=== PATIENT | male | born 1965 | race Caucasian/White ===

== ENCOUNTER 2023-02-22 12:46 | Emergency (ER) | payer OTHER, SELFPAY ==
[2023-02-22] VITALS (24 sets, daily range): BP systolic 151–175; BP diastolic 111–133; PULSE 67–78; RESP 12–22; TEMP 36.4; O2SAT 96–100
--- NOTE | ~2023-02-22 | XR_ITS ---
EXAMINATION: XR chest 2V 02/22/2023 13:42 INDICATION: Chest pain and lightheadedness PROCEDURE: 2 view chest COMPARISON: Comparison to multiple prior studies sequentially, with oldest reviewed study dated 09/11. FINDINGS: The lungs are clear. The cardiomediastinal silhouette is within normal limits. There are no pleural effusions. There is no pneumothorax suspected. IMPRESSION: 1: NO ACUTE CARDIOPULMONARY DISEASE. Reviewed, dictated and finalized at location A.
--- NOTE | 2023-02-22 13:08 | ECG_ITS ---
Measurements Intervals [place] Rate: 69 P: 45 [place]: 179 QRS: 16 QRSD: 96 T: 40 QT: 384 QTc: 413 Interpretive Statements SINUS RHYTHM WITHIN NORMAL LIMITS NO PREVIOUS ECG AVAILABLE FOR COMPARISON Electronically Signed On 02-23-2023 14:46:03 CDT by Kenneth Menezes M.D.
[2023-02-22 13:25] LABS: Basophils Absolute Auto 0.1 K/mm3 (0.0-0.1); Basophils Percent Auto 1.2 % (0.2-1.2); Eosinophils Absolute Auto 0.2 K/mm3 (0-0.3); Eosinophils Percent Auto 3.2 % (0-4.4); Hematocrit 38.1 % (42.0-52.0); Hemoglobin 12.7 g/dL (14.0-18.0); Immature Granulocyte Absolute 0.03 K/mm3 (0.00-0.031); Immature Granulocyte Percent A 0.5 % (0-0.5); Lymphocytes Absolute Auto 1.87 K/mm3 (0.9-3.2); Lymphocytes Percent Auto 33.1 % (18.3-44.2); Mean Corpuscular HGB Conc 33.3 g/dl (32-36); Mean Corpuscular Hemoglobin 30.7 pg (26-34); Mean Platelet Volume 9.4 fl (7.4-10.4); Monocytes Absolute Auto 0.6 K/mm3 (0.1-0.6); Neutrophils Absolute Auto 2.9 K/mm3 (1.3-6.7); Platelet Count Result 209 k/mm3 (150-375); Red Blood Count 4.14 M/mm3 (4.6-6.20); Red Cell Distribution Width 12.5 % (11.5-14.5); White Blood Count 5.7 K/mm3 (4.5-10.0)
[2023-02-22 13:35] LABS: Alanine Aminotransferase 16 U/L (6-50); Albumin Level 4.1 g/dL (3.5-5.1); Alkaline Phosphatase 68 U/L (38-126); Anion Gap 8 mmol/L (8-16); Aspartate Amino Transferase 31 U/L (17-59); Bilirubin,Total 0.6 mg/dL (0.2-1.3); Blood Urea Nitrogen 16 mg/dL (9-20); Calcium 9.1 mg/dL (8.4-10.2); Carbon Dioxide 23 mmol/L (22-30); Chloride 107 mmol/L (98-107); Estimated CRCL calculation 85 ml/min; Estimated Glomerular Filt Rate > 60; Glucose 94 mg/dL (65-110); Sodium 138 mmol/L (137-145)
[2023-02-22 13:37] LABS: INR 0.9; Prothrombin Time 12.9 Seconds (11.1-14.7)
[2023-02-22 13:38] LABS: Partial Thromboplastin Time 27.5 SECONDS (22.3-36.8)
[2023-02-22 13:47] LABS: Troponin I < 0.012 ng/mL (0.000-0.034)
--- NOTE | 2023-02-22 14:29 | ED.GENADULT ---
HPI - General Adult General Chief complaint: Chest Pain Stated complaint: feels faint Time Seen by Provider: 02/22/23 12:52 History of Present Illness HPI narrative: Patient is a 57-year-old male who presents ER with near syncope. He is at [employer] when he felt some acid reflux sensation and became lightheaded. He did not lose consciousness but felt like the most did. He was improved from his head down. No persistent chest pain. No racing heart. No history of heart disease. Denies fevers or chills or sweats. Reports eating a normal breakfast today. Related Data Allergies Allergy/AdvReac Type Severity Reaction Status Date / Time rubella virus live vaccine Allergy Mild Unknown Verified 02/22/23 12:59 Gadolinium-Containing Allergy Unknown Unknown Verified 02/22/23 12:59 Contrast Medi FEATHER PILLOWS Allergy Severe Unknown Uncoded 02/22/23 12:59 Contrast Media Allergy Mild ABD PAIN Uncoded 02/22/23 12:59 Review of Systems Review of Systems: All systems reviewed & are unremarkable except as noted in HPI and below Constitutional: Constitutional: Denies chills and Denies fatigue ENT: Denies nasal congestion and Denies sore throat Cardiovascular: Cardiovascular: Denies chest pain, Denies rapid heart rate and Denies radiating jaw, neck or arm pain Respiratory: Respiratory: Denies cough and Denies dyspnea Gastrointestinal: Gastrointestinal: Denies abdominal pain, Reports heartburn, Denies nausea and Denies vomiting Neurologic: Reports syncope (near), Denies headache(s), Denies focal weakness and Denies numbness PMFSH Past Medical History Medical History (Updated 02/22/23 @ 17:26 by Yayo Coffman MD) Healthy adult male Surgical History Surgical History (Updated 02/22/23 @ 17:26 by Yayo Coffman MD) History of cholecystectomy Social History Social History (System 11/30/19 @ 12:51 by Jackie Morrison) Smoking status: Former smoker Smoking end date: 05/04/05 Alcohol intake: never Exam Narrative: GENERAL: Well-appearing, well-nourished, and in no acute distress. HEAD: Normocephalic, atraumatic. ENT: Mucous membranes moist. NECK: Supple. CHEST: Clear to auscultation. No respiratory distress. HEART: Regular rate and rhythm. Normal peripheral pulses. ABDOMEN: Soft, nontender, nondistended. EXTREMITIES: Normal range of motion. No edema. SKIN: Warm, dry, no rash. NEURO: Alert and oriented x3. PSYCH: Normal mood and affect. Course Course Emergency Course: Patient resting comfortably. Informed of results. Troponin negative x3. Normal EKG me. Recommend follow-up with PCP. Discharged Vital Signs Vital signs: Vital Signs Pulse Rate 74 02/22/23 12:52 Respiratory Rate 17 02/22/23 12:52 Blood Pressure 170/111 H 02/22/23 12:52 Pulse Oximetry 99 02/22/23 12:52 Temperature 97.6 F 02/22/23 12:53 Pulse Rate 71 02/22/23 16:01 Respiratory Rate 14 02/22/23 16:01 Blood Pressure 168/117 H 02/22/23 16:01 Pulse Oximetry 99 02/22/23 16:01 Oxygen Delivery Room Air 02/22/23 12:57 Medical Decision Making Vital Signs Vital Signs: Vital Signs Pulse Rate 74 02/22/23 12:52 Respiratory Rate 17 02/22/23 12:52 Blood Pressure 170/111 H 02/22/23 12:52 Pulse Oximetry 99 02/22/23 12:52 Temperature 97.6 F 02/22/23 12:53 Pulse Rate 71 02/22/23 16:01 Respiratory Rate 14 02/22/23 16:01 Blood Pressure 168/117 H 02/22/23 16:01 Pulse Oximetry 99 02/22/23 16:01 Oxygen Delivery Room Air 02/22/23 12:57 Lab Data 02/22/23 13:20 02/22/23 13:20 Labs: Lab Results 02/22/23 02/22/23 Range/Units 13:20 16:04 WBC 5.7 (4.5-10.0) K/mm3 RBC 4.14 L (4.6-6.20) M/mm3 Hgb 12.7 L (14.0-18.0) g/dL Hct 38.1 L (42.0-52.0) % MCV 92.0 (80-100) fl MCH 30.7 (26-34) pg MCHC 33.3 (32-36) g/dl RDW 12.5 (11.5-14.5) % Plt Count 209 (150-375) k/mm3 MPV 9.4 (7.4
[2023-02-22 16:54] LABS: Troponin I < 0.012 ng/mL (0.000-0.034)
== END 2023-02-22 17:21 | disposition home or self-care (01) ==
PROVIDERS: Emergency Provider Emergency Medicine
DX: R55 Syncope and collapse (principal); R07.89 Other chest pain; Z87.891 Personal history of nicotine dependence
CPT/HCPCS: 36415; 71046; 80053; 84484; 85025; 85610; 85730; 93005; 99284

== ENCOUNTER → 2023-11-12 09:27 | Outpatient (CLI) | payer OTHER, SELFPAY ==
--- NOTE | ~2023-11-12 | XR_ITS ---
Left Shoulder Technique: AP and axillary views were obtained. Clinical History: Pain Findings: No fracture or dislocation is seen. Osseous alignment is anatomic. The glenohumeral and acr omioclavicular joint spaces are preserved. Soft tissues are unremarkable. Impression: Unremarkable left shoulder radiographs. Reviewed, dictated and finalized at [facility]. Impression: Unremarkable left shoulder radiographs.
== END ==
PROVIDERS: PCP Family Medicine; Visit Provider Nurse Practitioner Family
DX: M25.512 Pain in left shoulder (principal)
CPT/HCPCS: 73030

== ENCOUNTER 2024-10-17 01:52 | Day surgery (SDC) | payer OTHER, SELFPAY ==
[2024-10-07 09:56] VITALS: BMI 25.1
[2024-10-17 11:56] VITALS: BP 117/86; PULSE 74; RESP 18; TEMP 36.9; O2SAT 96
--- NOTE | 2024-10-17 12:10 | WPDANESEPPF ---
Anes - Initial Pre Proc Eval Procedure: Operation Date: 10/17/24 13:30 Proposed Procedures p Screening Colonoscopy - Theron Giraldo MD Date/Time: 10/17/24 12:10 Surgeon: Theron Giraldo MD Pre Op Diagnosis: screening Patient Data Age: 59 Gender: M Height: 1.83 m Weight: 77.8 kg Last Vital Signs Temp 36.9 C 10/17/24 11:56 Pulse 74 10/17/24 11:56 Resp 18 10/17/24 11:56 BP 117/86 10/17/24 11:56 Pulse Ox 96 10/17/24 11:56 O2 Del Method Room Air 10/17/24 11:56 Allergies Allergy/AdvReac Type Severity Reaction Status Date / Time rubella virus live vaccine Allergy Mild Unknown Verified 10/07/24 09:43 Gadolinium-Containing Allergy Unknown Unknown Verified 10/07/24 09:43 Contrast Medi FEATHER PILLOWS Allergy Severe Unknown Uncoded 10/07/24 09:43 Contrast Media Allergy Mild ABD PAIN Uncoded 10/07/24 09:43 Home Medications ?Medication ?Instructions ?Recorded ?Confirmed ?Type cyclobenzaprine 10 mg tablet 10 mg PO BID PRN muscle spasm #180 04/02/23 10/07/24 Rx tabs sildenafil 100 mg tablet 100 mg PO DAILY PRN sexual 11/12/23 10/07/24 Rx activity #30 tabs lisinopril 20 mg tablet 20 mg PO DAILY #90 tabs 06/20/24 10/17/24 Rx naproxen 500 mg tablet 500 mg PO BID PRN pain #180 tabs 06/20/24 10/07/24 Rx tamsulosin 0.4 mg capsule 0.4 mg PO QHS #90 caps 06/20/24 10/17/24 Rx Patient hx anesthesia problems: none Family hx anesthesia problems: none Results Review: All pre-operative results and documents have been reviewed as part of the pre-operative evaluation. 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, sober 3 years Substance use: never Substance use type: does not use Lack of Transportation: No Lack of Food: Sometimes True Current Housing: I Have Housing Concerned About Future Housing: No Difficulty Paying Gas/Electric Bills: No Difficulty Paying for Meds: No Currently Unemployed: No Education: High School Diploma/GED Difficulty w/ Childcare or Family Care: No Living arrangements: alone Spiritual care concerns: No Anes - Eval Final PreProcedure Day of Procedure 10/17/24 12:10 Patient weight: normal Heart: regular rate and rhythm Lungs: clear to auscultation and normal air movement Airway: Mallampati scale class II Neurological: alert and oriented Last oral intake: >/= 8 hours ASA classification: II Emergent: no Anesthetic plan: proceed Anesthesia type and monitoring: general GIVS and standard monitoring Results Review: All pre-operative results and documents have been reviewed as part of the pre-operative evaluation. Informed Consent: The patient's anesthetic plan and its attendant risks and benefits were discussed with the patient/family/POA. Questions were solicited and answers provided to the satisfaction of the patient/family/POA.
[2024-10-17] MEDS: LACTATED RINGERS 1,000 ML 150 ML IV CONT (12:33)
--- NOTE | 2024-10-17 12:39 | PM.HPGS ---
History of Present Illness History of Present Illness Consent: Risks, benefits, and alternatives have been discussed and questions answered. Patient agrees to proceed with procedure. Chief complaint: screening Narrative: Gabriel Wyman is a 59 year old male here for first screening colonoscopy Review of Systems Review of Systems: All systems reviewed & are unremarkable except as noted in HPI and below PMFSH Past Medical History Medical History (Updated 06/20/24 @ 15:39 by Virginia Prieto NP) Loose stools Erectile dysfunction Elevated fasting glucose Left shoulder pain Myalgia Screening for colon cancer Nocturia Encounter to establish care Hypertension Anemia Healthy adult male Surgical History Surgical History History of cholecystectomy Family History Family History Father Hypertension Social History Social History Years smoked: 15 Smoking status: Former smoker Tobacco type: cigarettes Smoking end date: 05/04/05 Alcohol intake: former Alcohol use details: 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, sober 3 years Substance use: never Substance use type: does not use Lack of Transportation: No Lack of Food: Sometimes True Current Housing: I Have Housing Concerned About Future Housing: No Difficulty Paying Gas/Electric Bills: No Difficulty Paying for Meds: No Currently Unemployed: No Education: High School Diploma/GED Difficulty w/ Childcare or Family Care: No Living arrangements: alone Spiritual care concerns: No Meds Home Medications and Allergies Home Medications ?Medication ?Instructions ?Recorded ?Confirmed ?Type cyclobenzaprine 10 mg tablet 10 mg PO BID PRN muscle spasm #180 04/02/23 10/07/24 Rx tabs sildenafil 100 mg tablet 100 mg PO DAILY PRN sexual 11/12/23 10/07/24 Rx activity #30 tabs lisinopril 20 mg tablet 20 mg PO DAILY #90 tabs 06/20/24 10/17/24 Rx naproxen 500 mg tablet 500 mg PO BID PRN pain #180 tabs 06/20/24 10/07/24 Rx tamsulosin 0.4 mg capsule 0.4 mg PO QHS #90 caps 06/20/24 10/17/24 Rx Allergies Allergy/AdvReac Type Severity Reaction Status Date / Time rubella virus live vaccine Allergy Mild Unknown Verified 10/07/24 09:43 Gadolinium-Containing Allergy Unknown Unknown Verified 10/07/24 09:43 Contrast Medi FEATHER PILLOWS Allergy Severe Unknown Uncoded 10/07/24 09:43 Contrast Media Allergy Mild ABD PAIN Uncoded 10/07/24 09:43 Vital Signs Vital Signs - 24 hr 10/17/24 11:56 Temperature 98.4 F Pulse Rate 74 Respiratory Rate 18 Blood Pressure 117/86 Pulse Oximetry 96 Oxygen Delivery Room Air Exam Const: General: comfortable and no acute distress HENMT: Face/Nose/Sinus: Normal nares present Eyes: General: appearance normal, both eyes and all related structures Neck: Neck: no JVD Resp: Auscultation: clear to auscultation bilaterally Cardio: Rate: regular rate Rhythm: regular rhythm GI: Inspection: non-distended GI Palp: Yes Soft to palpation Skin: General skin exam: normal color Neuro: Speech: normal speech Extrem: General: normal to inspection Psych: Mental Status: mental status grossly normal Assessment and Plan Assessment and plan (1) Screening for colon cancer: Code(s): Z12.11 - Encounter for screening for malignant neoplasm of colon Status: Acute Assessment and Plan: colonoscopy
--- NOTE | 2024-10-17 12:53 | S_PTH ---
PATIENT: Gabriel Wyman LOC: [facility]#:[id number] AGE/SX: 59/M ROOM: RE10/17/[address]: Theron Giraldo MD : 1965 BED: DIS: 10/17/2024 SPEC #: [id number] RECD: 10/17/24 13:06 STATUS: JL HONG #: [id number] MARIA LUISA: 10/17/24 12:[address]: Theron Giraldo DEPT: [facility] Surgical RECD BY: Karena Calvert ENTERED: 10/17/24 13:06 SP TYPE: Surgical OTHR DR: Eddie Rendon MD Tissues: A - Colon Polypectomy Procedures: Hematoxylin and Eosin Stain Gross and Microscopic Level 4
[2024-10-17 12:54] VITALS: BP 85/61; PULSE 62; RESP 18; O2SAT 100
[2024-10-17 13:04] VITALS: BP 110/81; BP 94/59; PULSE 62; PULSE 67; RESP 14; O2SAT 100
== END 2024-10-17 13:27 | disposition home or self-care (01) ==
PROVIDERS: PCP Family Medicine; Referring Provider Nurse Practitioner Family; Visit Provider Internal Medicine Gastroenterology
PROC: 0DJD8ZZ Inspection of Lower Intestinal Tract, Via Natural or Artificial Opening Endoscopic (ICD-10-PCS; CPT 45378; principal; 2024-10-17 13:30)
DX: Z12.11 Encounter for screening for malignant neoplasm of colon (principal); D12.3 Benign neoplasm of transverse colon; K57.30 Diverticulosis of large intestine without perforation or abscess without bleeding; K64.8 Other hemorrhoids; Z87.891 Personal history of nicotine dependence
CPT/HCPCS: 45385; 88305; J2704; J7120